=== PATIENT | female | born 1950 | race Two or more races ===

== ENCOUNTER 2024-10-26 18:25 | Emergency (ER) | payer OTHER ==
[~2024-10-26] VITALS: Ht 157.5 cm; Wt 63.0 kg
[2024-10-26 18:30] VITALS: BP 141/77; RESP 18; TEMP 98.5; O2SAT 97
[2024-10-26 18:49] VITALS: PULSE 97
--- NOTE | 2024-10-26 18:50 | ED.PDOC ---
History of Present Illness HPI Comments 73 y/o F presents with daughter for c/c right eye blurry vision and dizziness. Patient reports on sudden and unprovoked onset of symptoms, which lasted 10-15x minutes in duration, earlier, today, while rested in a seated position. She states on experiencing same symptoms on-and-off for over the past 2x days but endorses on episodes resolving themselves within the span of seconds. Daughter also comments on patient's blood pressure and heart rate being 'irregular' from her usual at 140's/70's and 50's, respectively. Denies any recent trauma, injuries, or sick contacts. Only pertinent history of self-managed DM (A1.C at 4.9 after last time checked). Patient denies any further acute associated symptoms. Chief Complaint: Dizziness Time Seen by MD: 18:35 Reviewed Notes: Nurses Notes, Medications, Allergies Allergies: Coded Allergies: NO KNOWN ALLERGIES (Unverified , 10/26/24) Information Source: Patient, Relative Mode of Arrival: Ambulatory Severity: Moderate Past Medical History PAST MEDICAL HISTORY: DM Surgical History: Denies all surgeries SEISMOGRAPH SHOOTER History: Denies all SEISMOGRAPH SHOOTER Hx Family History Family History: No family hx of Cancer, No family hx of DM, No family hx of HTN, No family hx ofKidney bel, No family hx of Liver bel, No family hx of Lung bel, No family hx of Stroke, Family hx of heart bel Social History Smoker: Non-Smoker Alcohol: Denies ETOH Use Drugs: Denies Drug Use Lives In: Home All Other Systems: Reviewed and Negative (Comprehensive systems review obtained and negative except for what is stated in the HPI.) Physical Exam General Appearance: No Apparent Distress, Normal HEENT: Normal ENT Inspection, Pharynx Normal, TMs Normal Neck: Full Range of Motion, Non-Tender, Normal, Normal Inspection Respiratory: Chest Non-Tender, Lungs Clear, No Accessory Muscle Use, No Respiratory Distress, Normal Breath Sounds Cardiovascular: No Edema, No JVD, No Murmur, No Gallop, Normal Peripheral Pulses, Regular Rate/Rhythm Breast Exam: Deferred Gastrointestinal: No Organomegaly, Non Tender, No Pulsatile Mass, Normal Bowel Sounds, Soft Genitalia: Deferred Pelvic: Deferred Rectal: Deferred Extremities: No calf tenderness, Normal capillary refill, Normal inspection, Normal range of motion, Non-tender, No pedal edema Musculoskeletal : Apperance: Normal Neurologic: Alert, freight tallier II-XII nml as Tested, No Motor Deficits, Normal Affect, Normal Mood, No Sensory Deficits Cerebellar Function: Normal Reflexes: Normal Skin: Dry, Normal Color, Warm Lymphatic: No Adenopathy Was a procedure done? Was a procedure done?: No EKG EKG : Pulse Rate (adult): 97 [place]: Normal Cardiac Rhythm: NSR Block: None Hypertrophy: None ST: Normal Differential Dx Considerations may include: CVA, TIA, vertigo, viral syndrome, dehydration, electrolyte imbalance, among others X-Ray, Labs, Meds, VS Vital Signs Date Time Temp Pulse Resp B/P (MAP) Pulse Ox O2 Delivery O2 Flow Rate FiO2 10/26/24 18:49 97 10/26/24 18:34 57 10/26/24 18:30 98.5 60 18 141/77 97 98.5 Lab Test 10/26/24 19:50 10/26/24 18:57 Range/Units Troponin I High Sensitivity 8 9 </=34 ng/L White Blood Count 8.1 4.4-10.8 10^3/uL Red Blood Count 4.13 4.0-5.20 10^6/uL Hemoglobin 13.2 12.2-16.2 g/dL Hematocrit 37.8 36.0-46.0 % Mean Corpuscular Volume 91.3 80.0-100.0 fL Mean Corpuscular Hemoglobin 32.0 28.0-32.0 pg Mean Corpuscular Hemoglobin Concent 35.1 32.0-36.0 g/dL Red Cell Distribution Width 14.0 11.8-14.3 % Platelet Count 201 140-450 10^3/uL Mean Platelet Volume 8.6 6.9-10.8 fL Neutrophils (%) (Auto) 50.2 37.0-80.0 % Lymphocytes (%) (Auto) 43.1 10.0-50.0 % Monocytes (%) (Auto) 4.8 0.0-12.0 % Eosinophils (%) (Auto) 1.5 0.0-7.0 % Basophils (%) (Auto) 0.4 0.0-2.0 % Neutrophils # (Auto) 4.0 1.6-8.6 10 ^3/uL Lymphocytes # (Auto) 3.5 0.4-5.4 10 ^3/uL Monocytes # (Auto) 0.4 0-1.3 10 ^3/uL Eosinophils # (Auto) 0.1 0-0.8 10 ^3/uL Basophils # (Auto) 0 0-0.2 10 ^3/uL Nucleated Red Blood Cells 0.1 % Sodium Level 145 136-145 mmol/L Potassium Level 3.7 3.5-5.1 mmol/L Chloride Level 111 H 98-107 mmol/L Carbon Dioxide Level 26 20-31 mmol/L Anion Gap 8 5-15 Blood Urea Nitrogen 18 9-23 mg/dL Creatinine 0.88 0.550-1.02 mg/dL Glomerular Filtration Rate Calc 70 >90 mL/min BUN/Creatinine Ratio 20.5 H 10.0-20.0 Serum Glucose 114 H 74-106 mg/dL Calcium Level 8.6 L 8.7-10.4 mg/dL Magnesium Level 1.8 1.6-2.6 mg/dL Time of 1ST Reevaluation: 19:05 Reevaluation 1ST: Unchanged Patient Education/Counseling: Diagnosis, Treatment, Need For Follow Up Family Education/Counseling: Diagnosis, Treatment, Need For Follow Up SEPSIS Sepsis Screen Date sepsis recognized/suspect: Oct 26, 2024 Time Sepsis recognized/suspect: 1827 Recent Procedure: No On Antibiotic Therapy: No Respiratory Rate >20: No Heart Rate >90: No Temp<36 C (96.8 F) or >38.3 C: No SBP <90 or MAP <65 mmHG: No New Acute Mental Status Change: No Is the patient on CPAP, BIPAP,: No Physician Orders Electrocardigram (10/26/24 18:37) Head Without Contrast (10/26/24 18:41) Vital Signs Date Time Temp Pulse Resp B/P (MAP) Pulse Ox O2 Delivery O2 Flow Rate FiO2 10/26/24 18:49 97 10/26/24 18:34 57 10/26/24 18:30 98.5 60 18 141/77 97 98.5 Laboratory Tests Test 10/26/24 18:57 White Blood Count 8.1 10^3/uL (4.4-10.8) Departure 1 Departure Time of Disposition: 20:30 Impression: Primary Impression: Blurred vision Additional Impression: Dizziness Disposition: 01 HOME / SELF CARE / HOMELESS Condition: Stable Discharged With: Relative Critical Care Note Critical Care Time?: No Stability Stability form required: No Heart Score Heart Score: Heart Score Response (Comments) Value History N/A 0 EKG N/A 0 Age N/A 0 Risk Factors N/A 0 Troponin N/A 0 Total 0 I personally scribed for BETTE MONSALVE MD ([email or web address]) on 10/26/24 at 18:49. E lectronically submitted by Edson Sanders [email or web address]). BETTE MONSALVE MD Oct 26, 2024 18:49
[2024-10-26 19:10] LABS: Hematocrit 37.8 % (36.0-46.0); Hemoglobin 13.2 g/dL (12.2-16.2); Mean Corpuscular Hemoglobin 32.0 pg (28.0-32.0); Mean Corpuscular Volume 91.3 fL (80.0-100.0); Nucleated Red Blood Cells % 0.1 %
--- NOTE | 2024-10-26 19:28 | DVH ---
CLINICAL HISTORY: vertigo TECHNIQUE: Helical scanning was performed of the head from the skull base to the vertex. Multiplanar reconstructions were performed. This exam was performed according to our departmental dose optimizat ion program. Up-to-date CT equipment and radiation dose reduction techniques are utilized as appropri ate. CTDI 50.2 DLP 94.4 COMPARISON: None FINDINGS: There is no evidence for acute intracranial hemorrhage, acute ischemic changes, mass, mass effect, or extra-axial fluid collection. There is no hydrocephalus or midline shift. There is no effacement of the cerebral sulci and basal subarachnoid cisterns. The dennis-white matter differentiation is well hillary ntained. There is mild brain volume loss and minimal chronic small vessel schema change. There has been bilate ral cataract extraction. There i used to live The imaged paranasal sinuses are clear. IMPRESSION: NO ACUTE INTRACRANIAL ABNORMALITY SEEN.
[2024-10-26 19:29] LABS: Potassium 3.7 mmol/L (3.5-5.1); Sodium 145 mmol/L (136-145)
[2024-10-26 19:30] LABS: Anion Gap 8 (5-15); Calcium 8.6 mg/dL (8.7-10.4); Carbon Dioxide 26 mmol/L (20-31); Chloride 111 mmol/L (98-107)
[2024-10-26 19:35] LABS: BUN/Creatinine Ratio 20.5 (10.0-20.0); Blood Urea Nitrogen 18 mg/dL (9-23)
[2024-10-26 19:36] LABS: Magnesium 1.8 mg/dL (1.6-2.6)
[2024-10-26 19:38] LABS: Glucose 114 mg/dL (74-106)
--- NOTE | 2024-10-28 10:56 | ECG ---
[facility] Test Date: 2024-10-26 Test Time: 18:34:35 Pat Name: CIELO LEIVA Department: ED Room: Gender: F Document Processor: constantin : 1950 Requested By: BETTE MONSALVE Order Number: [id number] Reading MD: Toan Nugent Measurements Intervals [place] Rate: 57 P: -34 WV: 164 QRS: -29 QRSD: 95 T: 54 QT: 443 QTc: 432 Interpretive Statements Sinus rhythm Borderline left axis deviation Probable anteroseptal infarct, old Baseline wander in lead(s) I,II,aVR,aVF,V1,V2 Electronically Signed On 10-28-2024 22:29:37 PDT by Toan Nugent Please click the below link to view image of tracing.
== END 2024-10-26 21:45 | disposition home or self-care (01) ==
LOC: ER 18:25
DX: H53.8 Other visual disturbances (principal); R42 Dizziness and giddiness; E11.9 Type 2 diabetes mellitus without complications
CPT/HCPCS: 36415; 70450; 80048; 83735; 84484; 85025; 93005